=== PATIENT | female | born 1990 | race Asian ===

== ENCOUNTER 2018-06-09 03:20 | Inpatient (IN) | payer SELFPAY ==
[~2018-06-09] VITALS: Ht 165 cm; Wt 90.0 kg
[2018-06-09] MEDS ORDERED: PROMETHAZINE 25 MG/ML VIAL IVP PRN (03:35)
[2018-06-09] MEDS ORDERED: NALBUPHINE 10 MG/ML AMP IVP PRN (03:35)
[2018-06-09] MEDS ORDERED: OXYTOCIN 10 UNITS/ML VIAL IM ONE (03:35)
[2018-06-09] MEDS ORDERED: OXYTOCIN 20 UNITS in LACTATED RINGERS 1,000 ML IV SCH (03:35)
[2018-06-09] MEDS ORDERED: CARBOPROST 250 MCG/ML AMP IM PRN (03:35)
[2018-06-09] MEDS ORDERED: METHYLERGONOVINE 0.2 MG/ML AMP IM PRN ×2 (03:35→06:05)
[2018-06-09] MEDS ORDERED: PROMETHAZINE 25 MG/ML VIAL ONE (03:49)
[2018-06-09] MEDS ORDERED: NALBUPHINE 10 MG/ML AMP ONE (03:49)
[2018-06-09] MEDS: LACTATED RINGERS 1,000 ML IV SCH ×2 (03:56→04:34)
[2018-06-09 04:00] VITALS: BP 96/53
[2018-06-09 04:04] LABS: BASOPHILS % (AUTO) 0.4 % (0.0-2.0); EOSINOPHILS # (AUTO) 0.2 K/uL (0-0.4); EOSINOPHILS % (AUTO) 1.8 % (0.0-4.0); HEMATOCRIT 36.7 % (36-48); HEMOGLOBIN 12.3 g/dL (12.0-16.0); LYMPHOCYTES % (AUTO) 17.2 % (20.5-51.1); MEAN CORPUSCULAR HEMOGLOBIN 30 pg (27-31); MEAN CORPUSCULAR HGB CONC 34 g/dL (33-37); MEAN CORPUSCULAR VOLUME 88.4 fL (80-94); MONOCYTES # (AUTO) 0.8 K/uL (0.8-1.0); MONOCYTES % (AUTO) 6.8 % (1.7-9.3); NEUTROPHILS # (AUTO) 8.8 K/uL (1.8-7.7); NEUTROPHILS % (AUTO) 73.8 % (42.2-75.2); PLATELET COUNT (AUTO) 303 K/uL (140-450); RED BLOOD CELL COUNT(AUTO) 4.14 MIL/uL (4.20-5.40); RED CELL DISTRIBUTION WIDTH 13.8 % (11.6-13.7); WHITE BLOOD COUNT (AUTO) 11.9 K/uL (4.8-10.8)
[2018-06-09 04:05] LABS: APPEARANCE,URINE CLEAR (CLEAR); BILIRUBIN,URINE NEGATIVE (NEGATIVE); BLOOD, URINE 2+ (NEGATIVE); COLOR,URINE YELLOW (YELLOW); LEUKOCYTE ESTERASE ,URINE TRACE (NEGATIVE); NITRITE, URINE NEGATIVE (NEGATIVE); PH,URINE 6.5 (5.0-9.0); UGLUCOSE NEGATIVE (NEGATIVE)
[2018-06-09] MEDS ORDERED: OXYTOCIN 20 UNITS/LR PREMIX 1,000 ML IV ONE (04:48)
[2018-06-09] MEDS ORDERED: BUPIVACAINE/DEXT 0.75% SPINAL 2 ML AMP INJ ONE (05:04)
[2018-06-09 05:30] LABS: RBC,URINE 11-20 (MOD) /HPF (0-5)
[2018-06-09] MEDS ORDERED: oxyCODONE/APAP 5/325 MG 1 TAB TAB PO PRN (06:05)
[2018-06-09] MEDS ORDERED: HYDROcodone/APAP 5/325 MG 1 TAB TAB PO PRN (06:05)
[2018-06-09] MEDS ORDERED: IBUPROFEN 800 MG TAB PO PRN (06:05)
[2018-06-09] MEDS ORDERED: OXYTOCIN 10 UNITS/ML VIAL IM PRN (06:05)
[2018-06-09] MEDS ORDERED: MEASLES, MUMPS, AND RUBELLA 1 VIAL SQVAC PRN (06:05)
[2018-06-09] MEDS ORDERED: TEMAZEPAM 15 MG CAP PO PRN (06:05)
[2018-06-09] MEDS ORDERED: BENZOCAINE/MENTHOL 20%-0.5% 60 GM CAN TP PRN (06:05)
--- NOTE | 2018-06-09 10:32 | NUR ---
PATIENT HAS BEEN SCREENED AND CATEGORIZED LOW NUTRITION RISK. PATIENT WILL BE SEEN WITHIN 7 DAYS OF ADMISSION. 06/15/[address]
[2018-06-09] MEDS ORDERED: DOCUSATE SOD/SENNA 50/8.6 MG 1 TAB PO SCH (21:00)
[2018-06-10] MEDS ORDERED: MEASLES, MUMPS, AND RUBELLA 1 VIAL SQVAC PRN (04:15)
[2018-06-10 06:57] LABS: HEMATOCRIT 30.2 % (36-48); HEMOGLOBIN 10.2 g/dL (12.0-16.0)
== END 2018-06-11 14:20 | disposition home or self-care (01) | DRG 775 ==
LOC: MLD 03:20 → MFCC 11:43
PROVIDERS: ADMIT Obstetrics & Gynecology; ATTEND Obstetrics & Gynecology
PROC: 3E0234Z Introduction of Serum, Toxoid and Vaccine into Muscle, Percutaneous Approach (ICD-10-PCS; principal; 2018-06-09)
PROC: 10E0XZZ Delivery of Products of Conception, External Approach (ICD-10-PCS; 2018-06-09)
PROC: 3E0R3BZ Introduction of Anesthetic Agent into Spinal Canal, Percutaneous Approach (ICD-10-PCS; 2018-06-09)
PROC: 00HU33Z Insertion of Infusion Device into Spinal Canal, Percutaneous Approach (ICD-10-PCS; 2018-06-09)
PROC: 3E033VJ Introduction of Other Hormone into Peripheral Vein, Percutaneous Approach (ICD-10-PCS; 2018-06-09)
DX: O80 Encounter for full-term uncomplicated delivery (principal); Z23 Encounter for immunization; Z3A.38 38 weeks gestation of pregnancy; Z37.0 Single live birth
CPT/HCPCS: 36415; 59409; 81001; 85018; 85025; 86592; 86886; 86900; 86901; 87086; 90707; 90715; J2300; J2550; J2590; J3490; J7120